=== PATIENT | female | born 1935 | race Caucasian/White ===

== ENCOUNTER 2019-03-16 07:18 | Inpatient (IN) ==
[2019-03-16 08:17] LABS: Basophils # 0.1 10*3/uL (0.0-0.2); Basophils % 0.4 % (0.0-0.8); Eosinophils # 0.1 10*3/uL (0.0-0.87); Eosinophils % 0.4 % (0.00-10.9); Immature Granulocytes % 0.6 %; Immature Granulocytes Absolute 0.08 #; Lymphocytes # 1.4 10*3/uL (1.4-4.0); Lymphocytes % 10.5 % (21.3-54.2); Mean Corpuscular HGB Conc 32.5 GM/DL (32-36); Mean Corpuscular Volume 98.8 FL (87-102); Mean Platelet Volume 9.5 FL (9.6-12.0); Monocytes % 6.6 % (1.7-12.7); Neutrophils % 81.5 % (38.7-73.9); Platelet Count 254 T/CUMM (130-400); Red Blood Count 4.05 MC/CUMM (3.8-5.5); Red Cell Distribution Width 13.2 % (9.3-17.3); White Blood Count 13.6 T/CUMM (4-12)
[2019-03-16 08:26] LABS: INR 0.9; PT Patient Result 10.3 SECS (9.6-12.2); Partial Thromboplastin Time < 21.0 SECS (20.8-36.0)
[2019-03-16] MEDS ORDERED: ACETAMINOPHEN 325 MG TABLET PO PRN (08:41)
[2019-03-16] MEDS ORDERED: ONDANSETRON 4 MG/2 ML VIAL IV PRN ×2 (08:41→12:11)
[2019-03-16 08:44] LABS: Alanine Aminotransferase 24 U/L (13-56); Albumin 3.5 G/DL (3.4-5.0); Alkaline Phosphatase 51 U/L (45-117); Aspartate Amino Transferase 17 U/L (0-37); Bilirubin,Total < 0.39 MG/DL (0.2-1.0); Blood Urea Nitrogen 21 MG/DL (7-18); Calcium 8.5 MG/DL (8.5-10.1); Estimated Glom Filtration Rate 34 ML/MIN; Glucose 185 MG/DL (74-106); Osmolality,Calculated 282.7 MOS/KG (273-304); Total Protein 7.1 G/DL (6.4-8.3)
[2019-03-16] MEDS ORDERED: MORPHINE 4 MG/1 ML VIAL IV PRN (08:47)
[2019-03-16 08:56] LABS: Apearance,Urine Slightly Hazy (Clear); Bacteria,Urine Many /HPF (Few); Bilirubin,Urine Negative (Negative); Blood, Urine Negative (Negative); Glucose,Urine (UA) Negative (Negative); Hyaline Casts,Urine 7 /LPF (0-3); Ketones,Urine Negative (Negative); Mucus,Urine Occasional /LPF (Occasional); Nitrite,Urine Negative (Negative); Protein,Urine Negative; RBC,Urine <1 /HPF (0-4); Urine Color Yellow (Yellow); Urine Specific Gravity 1.014 (1.001-1.035); Urine Urobilinogen < 2.0 EU/DL (0.2-1.0); WBC,Urine 3 /HPF (0-6)
[2019-03-16 09:12] LABS: Risk Ratio 3.83; Thyroid Stimulating Hormone 4.56 uIU/ml (0.358-3.74); VLDL CHOLESTEROL 34.6 MG/DL
[2019-03-16] MEDS ORDERED: BUPIVACAINE MPF 0.25% 30 ML VIAL ONE (10:06)
[2019-03-16] MEDS ORDERED: ceFAZolin 1,000 MG VIAL ONE (10:53)
[2019-03-16] MEDS ORDERED: ACETAMINOPHEN 1,000 MG/100 ML VIAL IV ONE (11:31)
[2019-03-16] MEDS ORDERED: MORPHINE 10 MG/1 ML VIAL IV PRN (12:11)
[2019-03-16] MEDS ORDERED: ePHEDrine 50 MG/ML AMP ONE (13:05)
[2019-03-16] MEDS ORDERED: fentaNYL 100 MCG/2 ML VIAL ONE (13:05)
[2019-03-16] MEDS ORDERED: propofoL 200 MG/20 ML VIAL IV ONE (13:05)
[2019-03-16] MEDS ORDERED: TRANEXAMIC ACID 1,000 MG/10 ML VIAL ONE (13:05)
[2019-03-16] MEDS ORDERED: SODIUM CHLORIDE 0.9% 200 ML IV ONE (13:06)
[2019-03-16] MEDS ORDERED: SODIUM CHLORIDE 0.9% 250 ML IV ONE (13:06)
[2019-03-16] MEDS ORDERED: LACTATED RINGERS 2,000 ML IV ONE (13:06)
[2019-03-16] MEDS ORDERED: PHENYLEPHRINE 1 MG/10 ML SYRINGE IV ONE (13:06)
[2019-03-16] MEDS ORDERED: BUPIVACAINE SPINAL 0.75% 2 ML AMP SPINAL ONE (13:06)
[2019-03-16] MEDS: PANTOPRAZOLE 40 MG TABLET PO SCH (14:00)
[2019-03-16 14:42] LABS: Basophils % 0.2 % (0.0-0.8); Hematocrit 35.1 VOL% (35.7-47.0); Hemoglobin 11.2 GM/DL (12.0-16.0); Immature Granulocytes % 0.4 %; Immature Granulocytes Absolute 0.05 #; Lymphocytes # 0.8 10*3/uL (1.4-4.0); Lymphocytes % 6.6 % (21.3-54.2); Mean Corpuscular HGB Conc 31.9 GM/DL (32-36); Mean Platelet Volume 9.2 FL (9.6-12.0); Monocytes % 7.4 % (1.7-12.7); Neutrophils % 85.4 % (38.7-73.9); Platelet Count 230 T/CUMM (130-400); Red Blood Count 3.51 MC/CUMM (3.8-5.5); Red Cell Distribution Width 13.3 % (9.3-17.3); White Blood Count 11.5 T/CUMM (4-12)
[2019-03-16] MEDS: MORPHINE 4 MG/1 ML VIAL IV PRN ×3 (16:55→22:13)
[2019-03-16] MEDS: SODIUM CHLORIDE 0.9% 1,000 ML IV SCH (16:59)
[2019-03-16] MEDS: clonazePAM 0.5 MG TABLET PO SCH (21:00)
[2019-03-16] MEDS: ATORVASTATIN 20 MG TABLET PO SCH (21:00)
[2019-03-17] MEDS: SODIUM CHLORIDE 0.9% 1,000 ML IV SCH ×3 (01:25→21:43)
[2019-03-17] MEDS: MORPHINE 4 MG/1 ML VIAL IV PRN ×2 (04:21→08:57)
[2019-03-17 06:07] LABS: Basophils % 0.4 % (0.0-0.8); Eosinophils # 0.1 10*3/uL (0.0-0.87); Eosinophils % 1.1 % (0.00-10.9); Hematocrit 31.2 VOL% (35.7-47.0); Hemoglobin 10.2 GM/DL (12.0-16.0); Immature Granulocytes % 0.4 %; Immature Granulocytes Absolute 0.04 #; Lymphocytes # 0.8 10*3/uL (1.4-4.0); Lymphocytes % 7.7 % (21.3-54.2); Mean Corpuscular HGB Conc 32.7 GM/DL (32-36); Mean Corpuscular Volume 100.3 FL (87-102); Mean Platelet Volume 9.7 FL (9.6-12.0); Monocytes % 8.8 % (1.7-12.7); Neutrophils % 81.6 % (38.7-73.9); Platelet Count 209 T/CUMM (130-400); Red Blood Count 3.11 MC/CUMM (3.8-5.5); Red Cell Distribution Width 13.8 % (9.3-17.3); White Blood Count 10.8 T/CUMM (4-12)
[2019-03-17 06:17] LABS: Calcium 7.8 MG/DL (8.5-10.1); Osmolality,Calculated 288.3 MOS/KG (273-304)
[2019-03-17] MEDS: LEVOTHYROXINE 25 MCG TABLET PO SCH (06:29)
[2019-03-17] MEDS: PANTOPRAZOLE 40 MG TABLET PO SCH (09:59)
[2019-03-17] MEDS: SERTRALINE 50 MG TABLET PO SCH (09:59)
[2019-03-17] MEDS ORDERED: MORPHINE 4 MG/1 ML VIAL IV PRN (10:55)
[2019-03-17] MEDS: clonazePAM 0.5 MG TABLET PO SCH (20:28)
[2019-03-17] MEDS: ENOXAPARIN 40 MG/0.4 ML SYRINGE SUBCUT SCH (20:28)
[2019-03-17] MEDS: ATORVASTATIN 20 MG TABLET PO SCH (20:28)
[2019-03-18 05:35] LABS: Basophils # 0.1 10*3/uL (0.0-0.2); Basophils % 0.6 % (0.0-0.8); Eosinophils # 0.3 10*3/uL (0.0-0.87); Eosinophils % 2.8 % (0.00-10.9); Hematocrit 30.2 VOL% (35.7-47.0); Hemoglobin 9.4 GM/DL (12.0-16.0); Immature Granulocytes % 0.6 %; Immature Granulocytes Absolute 0.06 #; Lymphocytes # 0.7 10*3/uL (1.4-4.0); Lymphocytes % 7.4 % (21.3-54.2); Mean Corpuscular HGB Conc 31.1 GM/DL (32-36); Mean Corpuscular Volume 102.7 FL (87-102); Mean Platelet Volume 9.8 FL (9.6-12.0); Monocytes % 9.4 % (1.7-12.7); Neutrophils % 79.2 % (38.7-73.9); Platelet Count 170 T/CUMM (130-400); Red Blood Count 2.94 MC/CUMM (3.8-5.5); Red Cell Distribution Width 13.7 % (9.3-17.3); White Blood Count 9.7 T/CUMM (4-12)
[2019-03-18] MEDS: LEVOTHYROXINE 25 MCG TABLET PO SCH (06:02)
[2019-03-18 06:07] LABS: Osmolality,Calculated 283.3 MOS/KG (273-304)
[2019-03-18] MEDS: SODIUM CHLORIDE 0.9% 1,000 ML IV SCH ×2 (06:50→23:10)
[2019-03-18] MEDS ORDERED: TUBERCULIN SKIN TEST 0.1 ML SYRINGE INTRADERM ONE (08:06)
[2019-03-18] MEDS: SERTRALINE 50 MG TABLET PO SCH (08:08)
[2019-03-18] MEDS: PANTOPRAZOLE 40 MG TABLET PO SCH (08:08)
[2019-03-18] MEDS: clonazePAM 0.5 MG TABLET PO SCH (21:10)
[2019-03-18] MEDS: ENOXAPARIN 40 MG/0.4 ML SYRINGE SUBCUT SCH (21:10)
[2019-03-18] MEDS: ATORVASTATIN 20 MG TABLET PO SCH (21:10)
[2019-03-19] MEDS: SODIUM CHLORIDE 0.9% 1,000 ML IV SCH ×3 (01:19→05:43)
[2019-03-19 05:08] LABS: Basophils % 0.4 % (0.0-0.8); Eosinophils # 0.4 10*3/uL (0.0-0.87); Eosinophils % 3.8 % (0.00-10.9); Hematocrit 27.9 VOL% (35.7-47.0); Immature Granulocytes % 0.6 %; Immature Granulocytes Absolute 0.06 #; Lymphocytes # 0.8 10*3/uL (1.4-4.0); Lymphocytes % 8.9 % (21.3-54.2); Mean Corpuscular HGB Conc 32.3 GM/DL (32-36); Mean Platelet Volume 9.7 FL (9.6-12.0); Neutrophils % 76.3 % (38.7-73.9); Platelet Count 187 T/CUMM (130-400); Red Blood Count 2.79 MC/CUMM (3.8-5.5); Red Cell Distribution Width 13.2 % (9.3-17.3); White Blood Count 9.5 T/CUMM (4-12)
[2019-03-19 05:26] LABS: Calcium 7.6 MG/DL (8.5-10.1); Osmolality,Calculated 283.1 MOS/KG (273-304)
[2019-03-19] MEDS: LEVOTHYROXINE 25 MCG TABLET PO SCH (05:59)
[2019-03-19] MEDS: PANTOPRAZOLE 40 MG TABLET PO SCH (09:32)
[2019-03-19] MEDS: SERTRALINE 50 MG TABLET PO SCH (09:32)
[2019-03-19] MEDS ORDERED: MAGNESIUM HYDROXIDE SUSP 30 ML UDCUP PO PRN (11:02)
[2019-03-19 11:49] VITALS: BP 148/65
== END 2019-03-19 13:40 | DRG 470 ==
LOC: EDBD → EDUNIT# → N.ED 07:18 → SUATTDRO 09:16 → N.3E 09:16
PROVIDERS: ADMIT Internal Medicine; ATTEND Internal Medicine